=== PATIENT | female | born 1950 | race Caucasian/White ===

== ENCOUNTER 2019-09-16 12:09 | Outpatient (CLI) | payer OTHER | END 2019-09-16 12:20 | disposition home or self-care (01) | LOC: EDBD 12:09 → RAD 12:09 | DX: R07.89 Other chest pain (principal); Z01.811 Encounter for preprocedural respiratory examination ==

== ENCOUNTER 2023-05-17 13:38 | Outpatient (CLI) | payer OTHER | END 2023-05-17 13:43 | disposition home or self-care (01) | LOC: RAD 13:38 | PROVIDERS: ATTEND Internal Medicine | DX: M25.562 Pain in left knee (principal); Z96.659 Presence of unspecified artificial knee joint ==